=== PATIENT | female | born 1995 | race American Indian/Alaskan Native ===

== ENCOUNTER 2019-09-07 16:52 | Emergency (ER) | payer OTHER ==
[2019-09-07 19:10] VITALS: BP 103/60
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
== END 2019-09-07 19:16 | disposition left against medical advice (07) ==
LOC: ED 16:52
DX: S29.019A Strain of muscle and tendon of unspecified wall of thorax, initial encounter (principal); M79.645 Pain in left finger(s); X58.XXXA Exposure to other specified factors, initial encounter; Y93.89 Activity, other specified; Y92.89 Other specified places as the place of occurrence of the external cause; Y99.8 Other external cause status
CPT/HCPCS: 99281